=== PATIENT | male | born 1955 | race Caucasian/White ===

== ENCOUNTER 2018-04-03 15:46 | Emergency (ER) | payer OTHER ==
[~2018-04-03] VITALS: Ht 170.2 cm; Wt 81.6 kg
[~2018-04-03 15:46] MED LIST: MEDROL DOSEPAK1 PAC PO
[2018-04-03 15:59] VITALS: BP 122/81
[2018-04-03 16:19] LABS: ABSOLUTE BASOPHIL COUNT 0 /CUMM (0.0-0.2); ABSOLUTE EOSINOPHIL COUNT 0.2 /CUMM (0.0-0.7); ABSOLUTE GRANULOCYTE CT 5.4 /CUMM (1.4-6.5); ABSOLUTE LYMPH COUNT 1.1 /CUMM (1.2-3.4); ABSOLUTE MONOCYTE COUNT 0.5 /CUMM (0.10-0.60); BASOPHIL % 0.1 % (0.0-2.0); EOSINOPHIL % 2.3 % (0-5); GRANULOCYTE % 75.7 % (42.2-75.2); MEAN CORPUSCULAR HGB 29.6 PG (27.0-31.0); MEAN CORPUSCULAR HGB CONC 34.3 G/DL (33.0-37.0); MEAN CORPUSCULAR VOLUME 86.3 FL (80.0-94.0); MEAN PLATELET VOLUME 7.3 FL (7.4-10.4); PLATELET COUNT 283 /CUMM (130-400); RED BLOOD CELL CT 4.98 /CUMM (4.70-6.10); WHITE BLOOD CELL COUNT 7.2 /CUMM (4.8-10.8)
--- NOTE | 2018-04-03 16:19 | ED CARDIAC/CP/PALPITATIONS ---
See Addendum History of Present Illness General Chief Complaint: Palpitations Stated Complaint: RACING HEART/PALP Source: patient Exam Limitations: no limitations Vital Signs & Intake/Output Vital Signs & Intake/Output Vital Signs Date Time Temp Pulse Resp B/P B/P Pulse O2 O2 Flow FiO2 Mean Ox Delivery Rate 04/03 1559 97.6 89 18 122/81 98 Room Air Allergies Coded Allergies: NO KNOWN ALLERGIES (07/30/14) Reconcile Medications Methylprednisolone. (Medrol) 4 MG TAB.DS.PK 1 PAC PO DAILY POISON FLAVIA Triage Note: PT STATES HE HAS BEEN SWEATING A LOT FOR THE PAST 1.5 HOURS AND HE FEELS HEART PALPATATIONS. PT DENIES ANY CARDIAC HX. PT DENIES CHEST PAIN OR SOB. EKG IN PROGRESS AT THIS TIME. Triage Nurses Notes Reviewed? yes Onset: Abrupt Duration: hour(s): Timing: single episode today Quality/Severity: moderate HPI: 62-year-old male presents to emergency department complaining of episode of diaphoresis and shortness of breath occurring 2 hours prior to arrival and states that he was at a local pizza shop when he became very sweaty. Patient had associated heart palpitations, shortness of breath, abdominal bloating and belching. Symptoms were persistent for about 2 hours during which time patient saw his friend who is an EMT to have his pulse checked. His friend told him his pulse was 160 and encouraged him to come to the emergency department. Patient states that when he got here his symptoms seemed to improve, he currently has no symptoms and feels in his usual state of health. 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 He did not have any chest pain during today's episode or at any point recently. (Shelby Clifton) Past History Travel History Traveled to [place] past 21 day No Medical History Any Pertinent Medical History? none Surgical History Surgical History: non-contributory Psychosocial History What is your primary language Italian Tobacco Use: Never used ETOH Use: occasional use Illicit Drug Use: denies illicit drug use Family History Hx Contributory? No (Shelby Clifton) Review of Systems Review of Systems Constitutional: Reports: see HPI. EENTM: Reports: no symptoms. Respiratory: Reports: see HPI. Cardiovascular: Reports: see HPI. GI: Reports: see HPI. Genitourinary: Reports: no symptoms. Musculoskeletal: Reports: no symptoms. Skin: Reports: no symptoms. Neurological/Psychological: Reports: no symptoms. Hematologic/Endocrine: Reports: no symptoms. Immunologic/Allergic: Reports: no symptoms. All Other Systems: Reviewed and Negative (Katerina MATTSON,Shelby Lorenzo) Physical Exam Physical Exam General Appearance: well developed/nourished, no apparent distress, alert, awake Head: atraumatic, normal appearance Eyes: Bilateral: normal appearance. Ears, Nose, Throat: hearing grossly normal Neck: normal inspection, supple, full range of motion Respiratory: normal breath sounds, no respiratory distress, lungs clear Cardiovascular: regular rate/rhythm, normal peripheral pulses Peripheral Pulses: 2+ radial (R), 2+ radial (L) Gastrointestinal: normal bowel sounds, soft, non-tender, no organomegaly Back: normal inspection, normal range of motion Extremities: normal inspection, normal range of motion Neurologic/Psych: awake, alert, oriented x 3 Skin: intact, normal color, warm/dry Core Measures ACS in differential dx? Yes CVA/TIA Diagnosis No Sepsis Present: No Sepsis Focused Exam Completed? No (Katerina MATTSON,Shelby Lorenzo) Progress Differential Diagnosis: AMI, atrial fibrillation, CHF/pulm edema, hyperkalemia, hyperthyroid, myocarditis, pericarditis, pneumonia, PSVT, pulmonary embolism, unstable angina Plan of Care: Orders Procedure Date/time Status TROPONIN LEVEL 04/03 1905 Active EKG 04/03 1905 Active URINALYSIS 04/03 1551 Active TSH REFLEX 04/03 1551 Complete TROPONIN LEVEL 04/03 1551 Complete MAGNESIUM 04/03 1551 Complete COMPREHENSIVE METABOLIC PANEL 04/03 1551 Complete CBC WITHOUT DIFFERENTIAL 04/03 1551 Complete EKG 04/03 1549 Active Laboratory Tests 04/03/18 1907: Troponin I Pending 04/03/18 1604: Anion Gap 9, Estimated GFR > 60, BUN/Creatinine Ratio 15.0, Glucose 188 H, Calcium 9.7, Magnesium 2.1, Total Bilirubin 0.9, AST 33, ALT 37, Alkaline Phosphatase 45, Troponin I < 0.01, Total Protein 7.2, Albumin 4.4, Globulin 2.8, Albumin/Globulin Ratio 1.6, TSH &T3 &Free T4 Intrp 1.780, CBC w Diff NO MAN DIFF REQ, RBC 4.98, MCV 86.3, MCH 29.6, MCHC 34.3, RDW 13.0, MPV 7.3 L, Gran % 75.7 H, Lymphocytes % 15.3 L, Monocytes % 6.6, Eosinophils % 2.3, Basophils % 0.1, Absolute Granulocytes 5.4, Absolute Lymphocytes 1.1 L, Absolute Monocytes 0.5, Absolute Eosinophils 0.2, Absolute Basophils 0 On arrival here to the emergency department the patient's symptoms. Initial EKG is in sinus rhythm without acute ischemic changes. Troponin enzyme is negative. Chest x-ray is stable. Given the patient's suspicious symptoms including diaphoresis, tachycardia, dyspnea and they're acute onset 2 hours prior to arrival obtaining repeat troponin and EKG is appropriate to further rule out acute coronary syndrome. Symptoms may be related to SVT which broke prior to arrival. No evidence of active SVT thus far while in the ED. Dr. Baum agrees with plan for 2 sets and cardiology follow-up. The patient was signed out to TWILA Ledesma pending repeat troponin and EKG. Diagnostic Imaging: Viewed by Me: Radiology Read. Discussed w/RAD: Radiology Read. CXR Impression: PATIENT: RYDER NUR PRESENT AGE: 62 PATIENT ACCOUNT NO: [id number] : 57 LOCATION: [facility] ORDERING PHYSICIAN: Shelby MATTSON SERVICE DATE: 04/03/18 EXAM TYPE: RAD - XRY-CHEST XRAY, TWO VIEWS EXAMINATION: XR CHEST CLINICAL INFORMATION: Palpitations. Assess for cardiac pulmonary process. COMPARISON: Chest x-ray 03/31/2011. TECHNIQUE: Frontal and lateral views of the chest were obtained. FINDINGS: The lung lopez are well expanded and appear clear bilaterally. The cardiac silhouette is normal. There are no pleural effusions or pneumothorax. The central pulmonary vasculature is normal. The hilar regions appear normal. There are no acute osseous findings. IMPRESSION: 1. There are no acute cardiopulmonary findings. DICTATED BY: Shane Ochoa MD DATE/TIME DICTATED:04/03/181629 EARLY CHILDHOOD ASSOCIATE :CATHI DATE/TIME TRANSCRIBED:04/03/181629 CONFIDENTIAL, DO NOT COPY WITHOUT APPROPRIATE AUTHORIZATION. <Electronically signed in Other Vendor System> SIGNED BY: Shane Ochoa MD 08/22/18 1634 Initial ED EKG: sinus rhythm @89bpm Hand-Off Endorsed To: Gaudencio Roach Endorsed Time: 1899 Pending: EKG, labs (Shelby Clifton) Departure Departure Disposition: STILL A PATIENT Condition: Stable Clinical Impression Primary Impression: Dyspnea Qualifiers: Dyspnea type: unspecified Qualified Code: R06.00 - Dyspnea, unspecified Secondary Impressions: Diaphoresis Referrals: Delbert Solorio MD (PCP/Family) Additional Instructions: You are given a referral to a saturator operator to follow-up with regarding her symptoms today. Please call the office tomorrow to make an appointment for as soon as possible. Return if any worsening symptoms or concerns. Please note that there might be incidental findings in your evaluation that are unrelated to the current emergency department visit. Please notify your primary care doctor about this emergency department visit in order to obtain and review all of the testing performed so that these incidental findings can be monitored as needed. If you had an x-ray performed, please understand that some fractures may not be seen on the initial set of x-rays. If your symptoms persist you might need a repeat set of x-rays to check for such a fracture. If you had a laceration evaluated, please understand that foreign bodies such as glass or wood may not be visible to the naked eye or on plain x-rays. If the wound becomes red, swollen, increasingly more painful or if there is any drainage from the wound, please have it reevaluated by a physician for the possibility of a retained foreign body. If you're unable to follow up as outlined in the discharge instructions please return to the emergency department. Thank you for choosing the [facility] Emergency Department for your care. It was a pleasure to serve you today. Departure Forms: Customer Survey General Discharge Information (Shelby Clifton) PA/MILITARY TECHNOLOGY SPECIALIST Co-Sign Statement Statement: ED Attending supervision documentation- [x] I saw and evaluated the patient. I have also reviewed all the pertinent lab results and diagnostic results. I agree with the findings and the plan of care as documented in the PA's/MILITARY TECHNOLOGY SPECIALIST's documentation. [x] I have reviewed the ED Record and agree with the PA's/MILITARY TECHNOLOGY SPECIALIST's documentation. [] Additions or exceptions (if any) to the PAs/MILITARY TECHNOLOGY SPECIALIST's note and plan are summarized below: [] (Bautista OLSON,Victor Manuel Barrios) Critical Care Note Critical Care Note Critical Care Time: non-applicable (Katerina MATTSON,Shelby Lorenzo)
--- NOTE | 2018-04-03 16:34 | RADIOLOGY REPORT ---
EXAMINATION: XR CHEST CLINICAL INFORMATION: Palpitations. Assess for cardiac pulmonary process. COMPARISON: Chest x-ray 03/31/2011. TECHNIQUE: Frontal and lateral views of the chest were obtained. FINDINGS: The lung lopez are well expanded and appear clear bilaterally. The cardiac silhouette is normal. There are no pleural effusions or pneumothorax. The central pulmonary vasculature is normal. The hilar regions appear normal. There are no acute osseous findings. IMPRESSION: 1. There are no acute cardiopulmonary findings.
== END 2018-04-03 20:33 ==
LOC: ERH 15:46
PROVIDERS: Physician Assistant Medical
DX: R06.00 Dyspnea, unspecified (principal); R61 Generalized hyperhidrosis
CPT/HCPCS: 71046; 93005; 93010